=== PATIENT | male | born 1960 ===

== ENCOUNTER 2024-09-25 10:48 | Emergency (ER) | payer MEDICARE ==
[2024-09-25] MEDS: Ketorolac 30 MG/ML SDV IVPUSH ONE (12:27)
== END 2024-09-25 14:42 | disposition home or self-care (01) ==
LOC: JP.ED 10:48
DX: R07.89 Other chest pain (principal); J45.909 Unspecified asthma, uncomplicated; Z91.048 Other nonmedicinal substance allergy status; Z79.51 Long term (current) use of inhaled steroids; Z87.891 Personal history of nicotine dependence; X58.XXXA Exposure to other specified factors, initial encounter
CPT/HCPCS: 71046; 96374; 99284; J1885